=== PATIENT | male | born 1975 | race Caucasian/White ===

== ENCOUNTER → 2020-12-19 09:11 | Outpatient (BNVA) | payer BC, SELFPAY | PROVIDERS: Visit Provider Orthopaedic Surgery | DX: S46.212A Strain of muscle, fascia and tendon of other parts of biceps, left arm, initial encounter (principal) | CPT/HCPCS: 99202 ==

== ENCOUNTER 2020-12-30 08:01 | Outpatient (REF) | payer BC, OTHER, SELFPAY | END 2020-12-30 08:02 | disposition home or self-care (01) | LOC: HO.HOSX 08:01 | PROVIDERS: Visit Provider Orthopaedic Surgery | DX: Z13.89 Encounter for screening for other disorder (principal) ==

== ENCOUNTER → 2021-01-20 14:36 | Outpatient (BNVA) | payer OTHER, BC, SELFPAY | PROVIDERS: Visit Provider Orthopaedic Surgery ==